=== PATIENT | female | born 1965 | race American Indian/Alaskan Native ===

== ENCOUNTER 2019-03-24 09:48 | Outpatient (CLI) | payer OTHER ==
--- NOTE | 2019-03-24 11:26 | XRay Report ---
LUMBAR SPINE 3 VIEWS INDICATION / CLINICAL INFORMATION: LOWER BACK PAIN. COMPARISON: None available. FINDINGS: No significant skeletal abnormality. Alignment is normal. Signer Name: Mj Chery MD FACGianni Signed: 03/24/2019 11:21 AM Workstation Name: [id number]
== END 2019-03-24 09:49 | disposition home or self-care (01) ==
LOC: XRAY 09:48
PROVIDERS: ATTEND Internal Medicine
DX: M54.5 Low back pain (principal); F32.9 Major depressive disorder, single episode, unspecified; M06.9 Rheumatoid arthritis, unspecified; D64.9 Anemia, unspecified
CPT/HCPCS: 72100